=== PATIENT | female | born 1985 | race Caucasian/White ===

== ENCOUNTER 2018-02-17 14:02 | Emergency (ER) | END 2018-02-18 11:05 ==

== ENCOUNTER 2018-07-02 20:44 | Emergency (ER) | payer BC ==
[~2018-07-02] VITALS: Ht 147.3 cm; Wt 45.0 kg
[~2018-07-02 20:44] MED LIST: OMEP20CA16 PO
[2018-07-02 20:51] VITALS: Ht 147.3 cm; Wt 45.0 kg
[2018-07-02] MEDS ORDERED: LORAZEPAM 2 MG INJ IV ONE (23:00)
--- NOTE | 2018-07-02 23:04 | ERD ---
ER Documentation Chief Complaint Chief Complaint ETOH ALOC HPI 32-year-old female brought in by ambulance for alcohol intoxication. Patient reportedly has a history of alcohol abuse per her mother at bedside. She went out to grab something to eat today. Mother went to look for her later and saw that the ambulance was taking her. She was reportedly intoxicated and sleeping on the street. Mother states that she has done this multiple times in the past where she goes out and gets intoxicated and then goes to the hospital. Later her boyfriend and boyfriend's mother came to bedside and states that the patient has had suicidal thoughts which she has endorsed to them. She does have a psychiatric history. They are very worried that she may be trying to hurt herself. ROS Limited secondary to altered mental status and intoxication Medications Home Meds Reported Medications Omeprazole* (Omeprazole*) 20 Mg Capsule.dr, 20 MG PO AC BREAKFAST, #30 CAP 02/18/18 Allergies Allergies: Coded Allergies: No Known Allergies (Verified Allergy, Mild, 12/21/13) PMhx/Soc History of Surgery: Yes (VAGINAL) Anesthesia Reaction: No Hx Neurological Disorder: No Hx Respiratory Disorders: No Hx Cardiac Disorders: No Hx Psychiatric Problems: Yes (DEPRESSION) Hx Miscellaneous Medical Probl: Yes (ALCOHOLISM) Hx Alcohol Use: Yes Hx Substance Use: Yes (MARIJUANA) Hx Tobacco Use: Yes Smoking Status: Current every day smoker FmHx Unable to obtain Physical Exam Vitals Vital Signs Date Temp Pulse Resp B/P (MAP) Pulse Ox O2 O2 Flow FiO2 Time Delivery Rate 07/02/18 92 15 102/75 100 Room Air 23:00 (84) 07/02/18 98.5 85 14 110/74 98 Room Air 20:57 (86) 07/02/18 98.5 98 14 110/74 98 20:51 (86) Physical Exam Const: Sleeping, obviously intoxicated Head: Atraumatic Eyes: Normal Conjunctiva ENT: Normal External Ears, Nose and Mouth. Neck: Full range of motion. No meningismus. Resp: Clear to auscultation bilaterally Cardio: Regular rate and rhythm, no murmurs Abd: Soft, non tender, non distended. Normal bowel sounds Skin: No petechiae or rashes Back: No midline or flank tenderness Ext: No cyanosis, or edema Neur: Somnolent but arousable. Moves all extremities spontaneously. Withdraws to pain. Psych: Unable to evaluate as she is sleeping Result Diagram: 07/02/18225307/02/182253 Results 24 hrs Laboratory Tests Test 07/02/18 21:28 07/02/18 21:40 07/02/18 22:54 Urine Opiates Screen Negative Urine Barbiturates Negative Urine Amphetamines Screen Negative Urine Benzodiazepines Screen Negative Urine Cocaine Screen Negative Urine Cannabinoids Positive POC Beta HCG, Qualitative NEGATIVE White Blood Count 5.8 10^3/ul Red Blood Count 4.44 10^6/ul Hemoglobin 13.7 g/dl Hematocrit 40.5 % Mean Corpuscular Volume 91.2 fl Mean Corpuscular Hemoglobin 30.9 pg Mean Corpuscular Hemoglobin Concent 33.8 g/dl Red Cell Distribution Width 12.6 % Platelet Count 356 10^3/UL Mean Platelet Volume 9.1 fl Immature Granulocytes % 0.300 % Neutrophils % 54.3 % Lymphocytes % 38.8 % Monocytes % 3.3 % Eosinophils % 2.1 % Basophils % 1.2 % Nucleated Red Blood Cells % 0.0 /100WBC Immature Granulocytes # 0.020 10^3/ul Neutrophils # 3.2 10^3/ul Lymphocytes # 2.3 10^3/ul Monocytes # 0.2 10^3/ul Eosinophils # 0.1 10^3/ul Basophils # 0.1 10^3/ul Nucleated Red Blood Cells # 0.0 10^3/ul Sodium Level 151 mmol/L Potassium Level 4.4 mmol/L Chloride Level 115 mmol/L Carbon Dioxide Level 24 mmol/L Anion Gap 12 Blood Urea Nitrogen 6 mg/dl Creatinine 0.51 mg/dl Est Glomerular Filtrat Rate mL/min > 60 mL/min Glucose Level 115 mg/dl Calcium Level 8.7 mg/dl Total Bilirubin 0.2 mg/dl Direct Bilirubin 0.00 mg/dl Indirect Bilirubin 0.2 mg/dl Aspartate Amino Transf (AST/SGOT) 27 IU/L Alanine Aminotransferase (ALT/SGPT) 21 IU/L Alkaline Phosphatase 49 IU/L Total Protein 7.6 g/dl Albumin 4.3 g/dl Globulin 3.30 g/dl Albumin/Globulin Ratio 1.30 Salicylates Level < 1.0 mg/dl Acetaminophen Level < 10.0 ug/ml Ethyl Alcohol Level 426.0 mg/dl Current Medications Medications Dose Sig/Hans Start Time Status Last (Trade) Ordered Route PRN Stop Time Admin Dose Reason Admin Lorazepam 1 mg ONCE ONCE 07/02/18 DC 07/02/18 (Ativan) IV 23:00 07/02/18 22:57 23:01 Procedures/MDM EMERGENT LABS AND DIAGNOSTIC STUDIES: Lab Results above were reviewed and interpreted by me. CBC: no anemia or evidence of infection CMP: Hypernatremia, likely secondary to dehydration. No evidence of renal failure, hypoglycemia, liver failure, or biliary obstruction Drug screen positive for cannabinoids negative EtOH significantly elevated, consistent with alcohol intoxication Initial Nursing notes reviewed. Previous Medical Records requested via the Electronic Health Record. EMERGENCY DEPARTMENT COURSE / MEDICAL DECISION MAKING: Patients presented with altered mental status. Vitals were unremarkable. Patient maintaining airway. Based on EMS report and exam, patients AMS is likely related to alcohol or drug intoxication. I have a low suspicion for serious metabolic or electrolyte derangement, intracranial hemorrhage, acute infectious process, meningitis/encephalitis, or CVA. Patient was observed for 3 hours in the ER with serial examinations and mental status evaluations. The patients symptoms have not completely resolved and not yet safe for discharge. She was noted to have hyponatremia, likely secondary to dehydration, so IV fluids were started. She did become very agitated and combative with ER staff and required Ativan for sedation. Patient will continue to be observed in the department for improvement of symptoms and mental status. Labs have been done in case the patient needs psychiatric evaluation and placement. Once the patient is more sober, I would like psychiatry to evaluate her if she is expressing any suicidal ideations. Patient will be signed out to the oncoming ED physician, who will reevaluate the patient and decide on final disposition. Departure Diagnosis: Primary Impression: Alcoholic intoxication Complication of substance-induced condition: with unspecified complication Qualified Codes: F10.929 - Alcohol use, unspecified with intoxication, unspecified Additional Impressions: Dehydration Hypernatremia Condition: ELSY Kaiser MD Jul 02, 2018 23:04
[2018-07-03] MEDS ORDERED: SOD CHLORIDE 0.9% 1,000 ML IV STA (00:07)
--- NOTE | 2018-07-03 04:26 | PSY ---
Date/Time of Note Date/Time of Note DATE: 07/03/18 TIME: 04:25 Psychiatric Subjective Eval Subjective Evaluation Patient location: emergency Chief Complaint: ETOH ALOC Reason for consult: SI Medical history Problems Medical Problems: (1) Alcohol intoxication Status: Acute (2) Alcoholic intoxication Status: Acute (3) Dehydration Status: Acute (4) Hypernatremia Status: Acute (5) Suicidal ideation Status: Acute Allergies: Coded Allergies: No Known Allergies (Verified Allergy, Mild, 12/21/13) Psychiatric Objective Eval Mental Status Examination: Laboratory Results Laboratory Tests Test 07/02/18 21:28 07/02/18 21:40 07/02/18 22:54 Urine Opiates Screen Negative Urine Barbiturates Negative Urine Amphetamines Screen Negative Urine Benzodiazepines Screen Negative Urine Cocaine Screen Negative Urine Cannabinoids Positive POC Beta HCG, Qualitative NEGATIVE White Blood Count 5.8 10^3/ul Red Blood Count 4.44 10^6/ul Hemoglobin 13.7 g/dl Hematocrit 40.5 % Mean Corpuscular Volume 91.2 fl Mean Corpuscular Hemoglobin 30.9 pg Mean Corpuscular Hemoglobin Concent 33.8 g/dl Red Cell Distribution Width 12.6 % Platelet Count 356 10^3/UL Mean Platelet Volume 9.1 fl Immature Granulocytes % 0.300 % Neutrophils % 54.3 % Lymphocytes % 38.8 % Monocytes % 3.3 % Eosinophils % 2.1 % Basophils % 1.2 % Nucleated Red Blood Cells % 0.0 /100WBC Immature Granulocytes # 0.020 10^3/ul Neutrophils # 3.2 10^3/ul Lymphocytes # 2.3 10^3/ul Monocytes # 0.2 10^3/ul Eosinophils # 0.1 10^3/ul Basophils # 0.1 10^3/ul Nucleated Red Blood Cells # 0.0 10^3/ul Sodium Level 151 mmol/L Potassium Level 4.4 mmol/L Chloride Level 115 mmol/L Carbon Dioxide Level 24 mmol/L Anion Gap 12 Blood Urea Nitrogen 6 mg/dl Creatinine 0.51 mg/dl Est Glomerular Filtrat Rate mL/min > 60 mL/min Glucose Level 115 mg/dl Calcium Level 8.7 mg/dl Total Bilirubin 0.2 mg/dl Direct Bilirubin 0.00 mg/dl Indirect Bilirubin 0.2 mg/dl Aspartate Amino Transf (AST/SGOT) 27 IU/L Alanine Aminotransferase (ALT/SGPT) 21 IU/L Alkaline Phosphatase 49 IU/L Total Protein 7.6 g/dl Albumin 4.3 g/dl Globulin 3.30 g/dl Albumin/Globulin Ratio 1.30 Salicylates Level < 1.0 mg/dl Acetaminophen Level < 10.0 ug/ml Ethyl Alcohol Level 426.0 mg/dl Assessment and Plan Recommendation/Plan Discharge Disposition: Psychiatric inpatient Legal Status: Place involuntary hold Assessment Additional comments: IDENTIFYING INFORMATION: 32 year old Female patient who is currently located at the hospital and for whom psychiatric consultation was requested. SOURCES OF INFORMATION: The patient who appears to be somewhat reliable and the medical records; the nursing staff. Mom, Ms. Chatterjee, was called at [phone] at 4:18 am To obtain collateral, but there was no response. CHIEF COMPLAINT: "depressed". HISTORY OF PRESENT ILLNESS: The patient was interviewed via telemedicine in the presence of and under the supervision of nursing staff of the hospital. The consent to conducting this interview via telemedicine was obtained by the nursing staff at the hospital. RN Clarissa reports that the patient presented with alcohol intoxication and thoughts of harming herself. The family was concerned of the patient was going to drink herself to . The patient reports having depressed mood, anhedonia, admits to not caring if something bad would happen to her like "falling down the sandy". Admits to insomnia, low appetite. The patient denies having AH, VH, delusions. The patient reports drinking heavily occasionally. Last drink was last night. + tremors with alcohol withdrawal. The patient denies having a history of alcohol withdrawal-induced seizures, delirium tremens, visual hallucinations. The patient reports using MJ at times. The patient denies using any other substances. In terms of past psychiatric history, the patient reports having a history of no past psychiatric hospitalizations. The patient reports having a history of past suicide attempts. PAST MEDICAL HISTORY: none. CURRENT MEDICATIONS: lexapro 10 mg po qday, OCP. ALLERGIES TO MEDICATIONS: NKDA. LABORATORY TESTS: CBC wnl, CMP with sodium 151, alcohol level 426, UDS + MJ. SOCIAL HISTORY: lives with boyfriend, single, on disability, employed, no access to firearms (there are guns but she does not know where they are located). REVIEW OF SYSTEMS: Constitutional (e.g., fever, weight loss): negative; Eyes, Ears, Nose, Mouth, Throat: negative; Cardiovascular: negative; Respiratory: negative; Gastrointestinal: negative; Genitourinary: negative; Musculoskeletal: negative; Integumentary (skin and/or breast): negative; Neurological: negative; Psychiatric: as per HPI; Endocrine: negative; Hematologic/Lymphatic: negative; Allergic/Immunologic: negative. MENTAL STATUS EXAMINATION: General Appearance and Behavior: Calm, cooperative with the interview, pleasant with the current interviewer, makes fair eye contact, fairly groomed, no abnormal movements noted, Speech: Regular rate, regular rhythm, normal latency, normal volume, somewhat decreased amount, Flow of thought: sequential, logical, goal-directed, Content of thought: no auditory hallucinations, no visual hallucinations, no delusions, positive for suicidal ideation; no homicidal ideation, Mood: "depressed", Affect: dysthymic, dysphoric, not reactive, Attention: normal based on the interview, Insight: fair, Judgment: poor, Memory: normal based on the interview, Sensorium: alert and oriented to person, place and date. ASSESSMENT: The patient's presentation and history are consistent with the diagnosis of unspecified mood disorder, alcohol use disorder. The patient presents in a major depressive episode in the context of medication compliance, psychosocial stressors and substance use. No evidence of psychosis, gricelda, hypomania on exam. PLAN: - Medication management: Would recommend starting alcohol withdrawal protocol per CIWA. Would also consider administering thiamine, folic acid, multivitamin. Would increase Lexapro to 20 mg by mouth daily. Would start haloperidol 5 mg IM PRN severe agitation q4 hours. Would start diphenhydramine 50 mg IM PRN severe agitation q4 hours. Would start lorazepam 2 mg IM PRN severe agitation q4 hours Will defer to the inpatient psychiatry team for other medication changes. - Labs: No other laboratory tests are needed at this time. - Psychotherapy: Provided supportive psychotherapy and psychoeducation. - Disposition: Would recommend involuntary admission to the inpatient psychiatric unit given the severity of the patient's psychiatric condition and the fact that the patient is an imminent danger to self and/or others so long as the patient has been cleared medically for admission to psychiatry. Inpatient psychiatric admission is at this time the least restrictive environment where the patient can receive the psychiatric care that is needed. Would place on suicide precautions. The patient fulfills criteria for being placed on an involuntary hold for being a danger to self due to a psychiatric disorder. Will discuss with the emergency room physician. ESTELLA PEOPLES MD Jul 03, 2018 04:26
[2018-07-03] MEDS ORDERED: DIPHENHYDRAMINE 50 MG INJ ONE (05:03)
[2018-07-03] MEDS ORDERED: DIPHENHYDRAMINE 50 MG INJ IV ONE (05:30)
[2018-07-03] MEDS ORDERED: SOD CHLORIDE 0.9% 1,000 ML IV ONE (05:30)
[2018-07-03] MEDS ORDERED: HALOPERIDOL 5 MG INJ IV ONE (05:30)
[2018-07-03] MEDS ORDERED: ONDANSETRON 4 MG INJ IV STA (13:07)
[2018-07-03 13:37] VITALS: BP 116/80; PULSE 78; RESP 18
== END 2018-07-03 14:00 ==
LOC: E/R 20:44
DX: F10.929 Alcohol use, unspecified with intoxication, unspecified (principal); E86.0 Dehydration; E87.0 Hyperosmolality and hypernatremia; F17.210 Nicotine dependence, cigarettes, uncomplicated; R40.2122 Coma scale, eyes open, to pain, at arrival to emergency department; R40.2212 Coma scale, best verbal response, none, at arrival to emergency department; R40.2352 Coma scale, best motor response, localizes pain, at arrival to emergency department
CPT/HCPCS: 36415; 51702; 80053; 80307; 81025; 85025; 96374; 96375; 99285; J1200; J1630; J2060; J2405; J7030